=== PATIENT | female | born 1995 | race Caucasian/White ===

== ENCOUNTER 2017-03-19 15:43 | Outpatient (CLI) | payer OTHER ==
[~2017-03-19] VITALS: Ht 163.8 cm; Wt 61.8 kg
[2017-03-19 16:44] LABS: MICROSCOPIC INDICATED
[2017-03-19 16:53] LABS: AMPHETAMINE SCREEN, URINE Negative (Negative); BARBITURATE SCREEN, URINE Negative (Negative); BENZODIAZEPINE SCREEN, URINE Negative (Negative); CANNABINOID SCREEN, URINE Negative (Negative); COCAINE SCREEN, URINE Negative (Negative); METHADONE SCREEN, URINE Negative (Negative); OPIATE SCREEN, URINE Negative (Negative)
[2017-03-19] MEDS ORDERED: NITR100C56 PO (18:05)
[2017-03-19] MEDS ORDERED: PREN-3 PO (18:06)
== END 2017-03-19 18:45 | disposition home or self-care (01) ==
LOC: LDOP 15:43
PROVIDERS: ATTEND Obstetrics & Gynecology
DX: O26.893 Other specified pregnancy related conditions, third trimester (principal); R10.9 Unspecified abdominal pain; Z3A.28 28 weeks gestation of pregnancy
CPT/HCPCS: 36415; 59025; 80307; 81001; 82731; 87086; 99201; G0463

== ENCOUNTER 2017-06-05 00:18 | Inpatient (IN) | payer OTHER ==
[~2017-06-05] VITALS: Ht 162.6 cm; Wt 70.9 kg
[~2017-06-05 00:18] MED LIST: NITR100C56 PO; PREN-3 PO
[2017-06-05 00:33] VITALS: BP 124/71
[2017-06-05] MEDS ORDERED: NEWBORN KIT ONE (02:43)
[2017-06-05] MEDS ORDERED: OXYTOCIN 30U/ 0.9% NaCL 500ML 500 ML ONE (02:44)
[2017-06-05] MEDS ORDERED: OXYTOCIN 30U/ 0.9% NaCL 500ML 500 ML IV ONE (03:04)
[2017-06-05] MEDS ORDERED: D5%-LACTATED RINGERS 1,000 ML IV SCH (03:04)
[2017-06-05] MEDS ORDERED: TERBUTALINE 1 MG/ML, 1ML IVPush PRN (03:30)
[2017-06-05] MEDS ORDERED: ONDANSETRON 2MG/ML, 2ML IVPush PRN (03:30)
[2017-06-05] MEDS ORDERED: METOCLOPRAMIDE 5 MG/ML, 2ML IVPush PRN (03:30)
[2017-06-05] MEDS ORDERED: FENTANYL PF 100 MCG/2ML IV PRN (03:30)
[2017-06-05] MEDS ORDERED: SODIUM CITRATE/CITRIC ACID 30 ML UDC PO PRN (03:30)
[2017-06-05] MEDS ORDERED: CALCIUM CARBONATE 500 MG TAB.CHEW PO PRN ×2 (03:30→19:00)
[2017-06-05] MEDS ORDERED: TERBUTALINE 1 MG/ML, 1ML SQ PRN (03:30)
[2017-06-05 03:40] LABS: BASOPHILS # (AUTO) 0.02 x10^3/uL (0-0.1); BASOPHILS % (AUTO) 0 % (0-1); EOSINOPHILS # (AUTO) 0.01 x10^3/uL (0-0.4); EOSINOPHILS % (AUTO) 0 % (1-7); LYMPHOCYTES # (AUTO) 1.68 x10^3/uL (1-3.4); LYMPHOCYTES % (AUTO) 16 % (22-44); MD NO; MEAN CORPUSCULAR HEMOGLOBIN 28.5 pg (27.0-34.8); MEAN CORPUSCULAR HGB CONC 32.7 g/dL (32.4-35.8); MEAN PLATELET VOLUME 9.8 fL (7.4-10.4); MONOCYTES # (AUTO) 0.45 x10^3/uL (0.2-0.8); MONOCYTES % (AUTO) 4 % (2-9); NEUTROPHILS # (AUTO) 8.39 x10^3/uL (1.8-6.8); NEUTROPHILS % (AUTO) 80 % (42-75); PLATELET COUNT 249 x10^3/uL (130-400); RED BLOOD COUNT 3.76 x10^6/uL (3.82-5.3); RED CELL DISTRIBUTION WIDTH 16.2 % (9.6-15.2)
[2017-06-05] MEDS ORDERED: FENTANYL PF 100 MCG/2ML ONE ×5 (07:11→14:34)
[2017-06-05] MEDS: FENTANYL PF 100 MCG/2ML IVPush PRN ×5 (07:15→14:36)
[2017-06-05] MEDS: LACTATED RINGERS 1,000 ML IV SCH ×2 (07:18→15:14)
[2017-06-05] MEDS ORDERED: LIDOCAINE-MPF 1%, 5ML ONE (07:22)
[2017-06-05 08:43] VITALS: BP 122/59
[2017-06-05] MEDS ORDERED: OXYTOCIN 30U/ 0.9% NaCL 500ML 500 ML IV SCH (18:38)
[2017-06-05] MEDS ORDERED: OXYcodone/APAP 5/325MG TABLET ONE (18:49)
[2017-06-05] MEDS ORDERED: IBUPROFEN 600 MG TABLET ONE (18:49)
[2017-06-05] MEDS: IBUPROFEN 600 MG TABLET PO PRN (18:52)
[2017-06-05] MEDS ORDERED: BISACODYL 10 MG SUPP PR PRN (19:00)
[2017-06-05] MEDS ORDERED: ONDANSETRON 2MG/ML, 2ML IV PRN (19:00)
[2017-06-05] MEDS ORDERED: ACETAMINOPHEN 325 MG TABLET PO PRN ×2 (19:00)
[2017-06-05] MEDS ORDERED: METHYLERGONOVINE 0.2 MG/ML IM PRN (19:00)
[2017-06-05] MEDS ORDERED: MISOPROSTOL 200 MCG TABLET PR PRN (19:00)
[2017-06-05] MEDS ORDERED: HYDROcodone/APAP 5/325 TABLET PO PRN (19:00)
[2017-06-05 20:10] VITALS: BP 112/63
[2017-06-05] MEDS: OXYTOCIN 30U/ 0.9% NaCL 500ML 500 ML IV SCH (20:10)
[2017-06-05] MEDS ORDERED: DIPH,PERTUSS(ACELL),TET VAC/PF NC IM-VACC ONE (23:30)
[2017-06-06 00:15] VITALS: BP 110/66
[2017-06-06 01:29] LABS: BASOPHILS # (AUTO) 0.02 x10^3/uL (0-0.1); BASOPHILS % (AUTO) 0 % (0-1); EOSINOPHILS % (AUTO) 0 % (1-7); LYMPHOCYTES # (AUTO) 1.83 x10^3/uL (1-3.4); LYMPHOCYTES % (AUTO) 12 % (22-44); MD NO; MEAN CORPUSCULAR HEMOGLOBIN 28.4 pg (27.0-34.8); MEAN CORPUSCULAR HGB CONC 33.2 g/dL (32.4-35.8); MEAN CORPUSCULAR VOLUME 85.5 fL (80-100); MEAN PLATELET VOLUME 9.6 fL (7.4-10.4); MONOCYTES # (AUTO) 1.05 x10^3/uL (0.2-0.8); MONOCYTES % (AUTO) 7 % (2-9); NEUTROPHILS # (AUTO) 12.71 x10^3/uL (1.8-6.8); NEUTROPHILS % (AUTO) 82 % (42-75); PLATELET COUNT 215 x10^3/uL (130-400); RED BLOOD COUNT 3.32 x10^6/uL (3.82-5.3); RED CELL DISTRIBUTION WIDTH 16.9 % (9.6-15.2)
[2017-06-06 04:20] VITALS: BP 117/66
[2017-06-06] MEDS: OXYTOCIN 30U/ 0.9% NaCL 500ML 500 ML IV SCH ×2 (04:38→14:38)
[2017-06-06] MEDS: IBUPROFEN 600 MG TABLET PO PRN ×2 (04:50→15:04)
[2017-06-06] MEDS: DOCUSATE 100 MG CAPSULE PO PRN (08:46)
[2017-06-06] MEDS: PRENATAL VIT/IRON/FA 1 EACH TABLET PO SCH (08:46)
[2017-06-06 08:50] VITALS: BP 121/70
[2017-06-06 14:00] VITALS: BP 108/70
[2017-06-06] MEDS: HYDROcodone/APAP 5/325 TABLET PO PRN (15:04)
[2017-06-06 19:30] VITALS: BP 116/52
[2017-06-06] MEDS ORDERED: DIPH,PERTUSS(ACELL),TET VAC/PF NC IM-VACC ONE (20:30)
[2017-06-07] MEDS: OXYTOCIN 30U/ 0.9% NaCL 500ML 500 ML IV SCH ×2 (00:38→10:38)
[2017-06-07] MEDS: IBUPROFEN 600 MG TABLET PO PRN ×3 (03:31→16:21)
[2017-06-07] MEDS: HYDROcodone/APAP 5/325 TABLET PO PRN ×3 (03:31→16:21)
[2017-06-07 09:00] VITALS: BP 112/70
[2017-06-07] MEDS: DOCUSATE 100 MG CAPSULE PO PRN (09:24)
[2017-06-07] MEDS: PRENATAL VIT/IRON/FA 1 EACH TABLET PO SCH (09:25)
[2017-06-07] MEDS ORDERED: HYDR-3240 PO (14:32)
[2017-06-07] MEDS ORDERED: IBUP-1222 PO (14:32)
[2017-06-07] MEDS ORDERED: DOCU-131 PO (14:33)
== END 2017-06-07 16:25 | disposition home or self-care (01) | DRG 775 ==
LOC: LDOP 00:18 → LDIP 02:42 → 2NW 19:52
PROVIDERS: ADMIT Obstetrics & Gynecology; ATTEND Obstetrics & Gynecology
PROC: 10E0XZZ Delivery of Products of Conception, External Approach (ICD-10-PCS; principal; 2017-06-07)
DX: O80 Encounter for full-term uncomplicated delivery (principal); Z37.0 Single live birth; Z3A.38 38 weeks gestation of pregnancy
CPT/HCPCS: 36415; 85025; 86850; 86900; 90715; J3010; J2590; J7120; J7121

== ENCOUNTER 2020-09-09 00:09 | Inpatient (IN) | payer OTHER ==
[~2020-09-09] VITALS: Ht 162.6 cm; Wt 75.5 kg
[~2020-09-09 00:09] MED LIST changes: +DOCU-131 PO; +HYDR-2214 PO; +IBUP-1222 PO
[2020-09-09] MEDS ORDERED: ONDANSETRON 2MG/ML, 2ML IVPush PRN (01:00)
[2020-09-09] MEDS ORDERED: D5%-LACTATED RINGERS 1,000 ML IV SCH (01:00)
[2020-09-09] MEDS ORDERED: CALCIUM CARBONATE 500 MG TAB.CHEW PO PRN (01:00)
[2020-09-09] MEDS ORDERED: TERBUTALINE 1 MG/ML, 1ML SQ PRN (01:00)
[2020-09-09] MEDS ORDERED: TERBUTALINE 1 MG/ML, 1ML IVPush PRN (01:00)
[2020-09-09] MEDS ORDERED: OXYTOCIN 30U/ 0.9% NaCL 500ML 500 ML IV ONE (01:00)
[2020-09-09] MEDS ORDERED: LACTATED RINGERS 1,000 ML IV SCH (01:00)
[2020-09-09] MEDS ORDERED: FENTANYL PF 100 MCG/2ML IV PRN (01:00)
[2020-09-09] MEDS ORDERED: OXYTOCIN 30U/ 0.9% NaCL 500ML 500 ML ONE (01:09)
[2020-09-09] MEDS ORDERED: LIDOCAINE 1%, 20ML ONE (01:10)
[2020-09-09] MEDS ORDERED: MISOPROSTOL 200 MCG TABLET ONE (01:10)
[2020-09-09] MEDS ORDERED: NEWBORN KIT ONE (01:10)
[2020-09-09 01:30] LABS: BASOPHILS % (AUTO) 1 % (0-1); EOSINOPHILS % (AUTO) 1 % (1-7); LYMPHOCYTES % (AUTO) 30 % (22-44); MEAN CORPUSCULAR HEMOGLOBIN 28.4 pg (27.0-34.8); MEAN CORPUSCULAR HGB CONC 33.7 g/dL (32.4-35.8); MEAN PLATELET VOLUME 8.6 fL (7.4-10.4); MONOCYTES % (AUTO) 8 % (2-9); NEUTROPHILS % (AUTO) 61 % (42-75); PLATELET COUNT 272 x10^3/uL (130-400); RED BLOOD COUNT 3.96 x10^6/uL (3.82-5.3); RED CELL DISTRIBUTION WIDTH 14.8 % (9.6-15.2)
[2020-09-09] MEDS: FENTANYL PF 100 MCG/2ML IVPush PRN ×2 (03:43→04:51)
[2020-09-09] MEDS ORDERED: OXYcodone/APAP 5/325MG TABLET PO PRN (06:00)
[2020-09-09] MEDS ORDERED: IBUPROFEN 600 MG TABLET PO PRN (06:00)
[2020-09-09] MEDS ORDERED: DOCUSATE 100 MG CAPSULE PO PRN (06:00)
[2020-09-09] MEDS: OXYTOCIN 30U/ 0.9% NaCL 500ML 500 ML IV SCH ×2 (06:00→16:00)
[2020-09-09] MEDS ORDERED: SIMETHICONE 80 MG CHEW TAB PO PRN (06:00)
[2020-09-09] MEDS ORDERED: ACETAMINOPHEN 325 MG TABLET PO PRN (06:00)
[2020-09-09] MEDS ORDERED: ONDANSETRON 2MG/ML, 2ML IV PRN (06:00)
[2020-09-09] MEDS ORDERED: OXYcodone IR 5MG TABLET PO PRN (06:00)
[2020-09-09] MEDS ORDERED: MISOPROSTOL 200 MCG TABLET PR PRN (06:00)
[2020-09-09 07:15] VITALS: BP 101/64
[2020-09-09] MEDS: PRENATAL VIT/IRON/FA 1 EACH TABLET PO SCH (09:00)
[2020-09-09 12:30] VITALS: BP 111/64
[2020-09-09 13:41] LABS: MEAN CORPUSCULAR HEMOGLOBIN 28.1 pg (27.0-34.8); MEAN CORPUSCULAR HGB CONC 33.4 g/dL (32.4-35.8); MEAN PLATELET VOLUME 8.6 fL (7.4-10.4); PLATELET COUNT 258 x10^3/uL (130-400); RED BLOOD COUNT 3.96 x10^6/uL (3.82-5.3); RED CELL DISTRIBUTION WIDTH 14.7 % (9.6-15.2)
[2020-09-09 14:05] LABS: BANDS%(MANUAL) 2 % (0-7); LYMPH#(MANUAL) 2.85 x10^3/uL (1-3.4); LYMPHS% (MANUAL) 19 % (22-44); METAMYELOCYTES# (MANUAL) 0.15 x10^3/uL (0-0); METAMYELOCYTES% (MANUAL) 1 % (0-1); MONOS% (MANUAL) 6 % (2-9); SEGS% (MANUAL) 72 % (42-75)
[2020-09-09 14:06] LABS: <PLATELET ESTIMATE> ADEQUATE; <PLT MORPHOLOGY> NORMAL PLT MORPH; <RBC MORPHOLOGY> NORMAL
[2020-09-09 16:30] VITALS: BP 107/68
[2020-09-09 21:00] VITALS: BP 97/61
[2020-09-10 01:00] VITALS: BP 102/68
[2020-09-10] MEDS: OXYTOCIN 30U/ 0.9% NaCL 500ML 500 ML IV SCH (02:00)
[2020-09-10] MEDS ORDERED: IBUP-1222 PO (07:28)
[2020-09-10] MEDS: PRENATAL VIT/IRON/FA 1 EACH TABLET PO SCH ×2 (09:00→12:05)
[2020-09-10] MEDS ORDERED: DIPH,PERTUSS(ACELL),TET VAC/PF NC IM-VACC ONE ×2 (11:33→12:00)
== END 2020-09-10 12:35 | disposition home or self-care (01) | DRG 807 ==
LOC: LDIP 00:09 → 2NW 07:18
PROVIDERS: ADMIT Obstetrics & Gynecology; ATTEND Obstetrics & Gynecology
PROC: 10E0XZZ Delivery of Products of Conception, External Approach (ICD-10-PCS; principal; 2020-09-09)
PROC: 3E0234Z Introduction of Serum, Toxoid and Vaccine into Muscle, Percutaneous Approach (ICD-10-PCS; 2020-09-10)
DX: O80 Encounter for full-term uncomplicated delivery (principal); Z37.0 Single live birth; Z20.822 Contact with and (suspected) exposure to COVID-19; Z3A.39 39 weeks gestation of pregnancy; Z23 Encounter for immunization
CPT/HCPCS: 36415; 85025; 86592; 86850; 86900; 87635; 90715; G0378; J3010